=== PATIENT | female | born 1985 | race Caucasian/White ===

== ENCOUNTER 2023-07-13 11:03 | Outpatient (CLI) | payer BC | END 2023-07-13 23:59 | disposition home or self-care (01) | LOC: MRI 11:03 | PROVIDERS: ATTEND Family Medicine | DX: M65.812 Other synovitis and tenosynovitis, left shoulder (principal); M25.412 Effusion, left shoulder; R53.1 Weakness; R20.0 Anesthesia of skin; M25.512 Pain in left shoulder | CPT/HCPCS: 73221 ==